=== PATIENT | male | born 1985 | race Caucasian/White ===

== ENCOUNTER 2022-09-12 15:30 | Emergency (ER) | payer OTHER, SELFPAY ==
[2022-09-12 15:35] VITALS: BP 166/92; PULSE 81; RESP 18; TEMP 36.3; O2SAT 96
--- NOTE | 2022-09-12 15:48 | ED_ITS ---
HPI - General Adult General Time Seen by Provider: 17:16 Date Seen: 09/12/22 Chief complaint: Laceration/Wound Stated complaint: Lacs on both index fingers Time Seen by Provider: 09/12/22 15:31 Source: patient Mode of arrival: ambulatory Limitations: no limitations History of Present Illness HPI narrative: Patient is a 36-year-old male presents emergency department for a laceration to his bilateral index fingers. He states prior to arrival he was moving some sheet metal when it cut both fingers. He initially went to urgent care by Clarence kevin the emergency department for better evaluation. He was given a tetanus shot at Urgent Care. Denies any other injuries. Denies any numbness to the fingers. Does note he is having some difficulty fully flexing his left finger with minimal difficulty moving the right finger. No other concerns at this time Related Data Previous Rx's Medication Instructions Recorded cephalexin 500 mg capsule 500 mg PO QID #20 caps 09/12/22 Allergies Allergy/AdvReac Type Severity Reaction Status Date / Time No Known Drug Allergies Allergy Verified 09/12/22 15:01 Review of Systems Narrative: All pertinent review of systems was otherwise unremarkable unless stated in HPI PFSH PFSH Social History Smoking Status: Never smoker How often do you have a drink containing alcohol: 2-4 times a month AUDIT-C Alcohol total score: 2 Non-prescribed substance use: denies use Exam Narrative: Exam Narrative: Const: Well-nourished, Well-developed, in mild distress Eyes: PERRL, no conjunctival injection, and symmetrical lids ENMT: Atraumatic external nose and ears. Moist mucous membranes. MSK:Extremities w/o deformity, Normal Active ROM Skin: Warm, Dry. Laceration to the left index finger in an L-shaped about 1.5 cm x 1.5 cm. Laceration right index finger 1.5 cm. Both are in the midportion of the of palmar aspect of the finger just distal to the PIP. Neuro: Normal Muscle tone, No focal neurological deficits. Psych: Awake, Alert, & Oriented x3. Appropriate mood and affect. Const: Vital Signs, click to edit/add: Vital Signs - 24 hr 09/12/22 15:35 Temperature 97.3 F L Pulse Rate [Right Pulse Oximeter] 81 Respiratory Rate 18 Blood Pressure [Ri ght Upper Arm] 166/92 H Pulse Oximetry 96 Oxygen Delivery Me thod Room Air Course Vital Signs Vital signs: Initial Vital Signs Temperature 97.3 F L 09/12/22 15:35 Temperature Source Temporal Artery Scan 09/12/22 15:35 Pulse Rate 81 09/12/22 15:35 Respiratory Rate 18 09/12/22 15:35 Blood Pressure 166/92 H 09/12/22 15:35 Blood Pressure Mean 116 H 09/12/22 15:35 Blood Pressure Position Sitting 09/12/22 15:35 Pulse Oximetry 96 09/12/22 15:35 Oxygen Delivery Method Room Air 09/12/22 15:35 Vital Signs Temperature 97.3 F L 09/12/22 15:35 Pulse Rate 81 09/12/22 15:35 Respiratory Rate 18 09/12/22 15:35 Blood Pressure 166/92 H 09/12/22 15:35 Pulse Oximetry 96 09/12/22 15:35 Oxygen Delivery Method Room Air 09/12/22 15:35 Temperature 97.3 F L 09/12/22 15:35 Pulse Rate 81 09/12/22 15:35 Respiratory Rate 18 09/12/22 15:35 Blood Pressure 166/92 H 09/12/22 15:35 Pulse Oximetry 96 09/12/22 15:35 Oxygen Delivery Method Room Air 09/12/22 15:35 Medical Decision Making MDM Narrative Medical decision making narrative: Patient is a 36-year-old male presenting for laceration to bilateral index fingers. He was moving some sheet metal when they cut his fingers. He received his tetanus shot by Urgent Care was sent here for better evaluation. I did to lack repair sent both fingers. He is having no difficulty with movement of his right finger but does note some difficulty bending at the D IP to the left finger. The laceration is just distal to the PIP and there is concern for tendon involvement at this time. Does not appear over the deep at this time they did do an ultrasound of the area which as far as I could see showed intact tendon. He did have increased movement after the digital nerve blocks but was still having difficulty mostly on the left DIP. Patient tolerated the laceration repair well. Why still have some concern for deep tendon involvement but everything that I can see shows no signs of it other than the difficulty moving finger. I will state I could not clearly see down to the tendon and did not see any tendinous strands on my evaluation. I informed him to follow up with his primary care provider early next week if he continues to have difficulty with movement of the finger. Considering the mechanism of injury and the clear view is a had I do not believe is necessary to do x-rays to look for foreign bodies at this time. He states he understands. Since both cuts were on the extensor surface I will treat him with antibiotics. Discharge Plan Discharge Clinical Impression: Laceration Patient Disposition: Home, Self-Care Condition: Stable Instructions: Finger Laceration (ED) Additional Instructions: Follow-up with primary care provider in the next couple days if he continues to have difficulty moving your finger. You can also return here to the emergency department if they are unable to get in with your primary care provider. I did prescribe any antibiotics. If you developed severe pain and infection to the finger please return to the emergency department immediately. Prescriptions: New cephalexin 500 mg capsule 500 mg PO QID Qty: 20 0RF Follow Up/Referrals: Fox Whalen MD [Primary Care Provider] - Stand Alone Forms: [facility] Info Instructions Procedures Laceration Left index finger: Name of person performing procedure: Cayden Salter Site: hand (Index finger, L-shaped 1.5 cm x 1.5 cm) Side (If applicable): left Size (cm): 3 Description: linear and clean Depth: simple, single layer Local Anesthetic: lidocaine 1% Amount of anesthesia used (mL): 3 Pre-repair: wound explored, irrigated extensively and deep structures intact Skin layer closed with: nylon Size (cm): 4-0 Number of sutures: 6 Technique: simple, interrupted Right index finger: Name of person performing procedure: Cayden Salter Site: hand (Index finger) Side (If applicable): right Size (cm): 3 Description: linear and clean Depth: simple, single layer Local Anesthetic: lidocaine 1% (Digital nerve block) Amount of anesthesia used (mL): 1.5 Pre-repair: wound explored, irrigated extensively and deep structures intact Skin layer closed with: nylon Size (cm): 4-0 Number of sutures: 5 Technique: simple, interrupted
--- NOTE | 2022-09-12 17:36 | ED.NURSE ---
bilat index fingers sutured. wrapped with bacitracin, telfa, gauze and coban.
== END 2022-09-12 17:38 | disposition home or self-care (01) ==
PROVIDERS: Emergency Provider Student in an Organized Health Care Education/Training Program; PCP Internal Medicine
DX: S61.211A Laceration without foreign body of left index finger without damage to nail, initial encounter (principal); S61.210A Laceration without foreign body of right index finger without damage to nail, initial encounter; W26.9XXA Contact with unspecified sharp object(s), initial encounter
CPT/HCPCS: 12002; 99283

== ENCOUNTER 2022-09-25 10:08 | Outpatient (CLI) | payer OTHER, SELFPAY ==
--- NOTE | 2022-09-25 10:15 | MR_ITS ---
[address] [address] Phone:?[phone] Fax:?[phone] Referring Physician Information: Yary Morgan [address] [facility] [address] Phone:?[phone] Fax:?[phone] Patient:Clemente Grove D.O.B:?1985 Sex:?Male Phone:?[phone] [facility] MRN:?[id number] Exam Date:?09/25/2022 EXAM: MRI of the LEFT HAND, without contrast CLINICAL HISTORY: Acute laceration injury of the left hand second finger. COMPARISONS: Plain radiographs 09/16/2022. TECHNICAL: MRI sequences of the left hand: Axials: PD, PD FS, T2 Coronals: PD, STIR, T2 Sagittals: PD, T2 Sedation: None Contrast: None FINDINGS: Bones: No fracture or suspicious bone marrow signal abnormality is seen although it must be noted that the distal portion of the second proximal phalanx, second middle phalanx, and second distal phalanx are obscured by metallic susceptibility artifact. Joints: No subluxation, dislocation, or joint effusion is seen although it must be noted that evaluation is compromised by metallic susceptibility artifact. Ligaments: The second PIP and DIP collateral ligaments are obscured by metallic susceptibility artifact. The second MCP joint collateral ligaments are intact. Tendons: There is complete disruption of the second finger flexor digitorum profundus tendon with distal tendon retraction to the level of the second metacarpal diaphysis. There is proximal tendon retraction proximal to the [id number] of this study. The second finger flexor tendons are obscured from just proximal to the level of the second PIP joint through the level of the middle phalanx. IMPRESSION: 1. Complete disruption of the second finger flexor digitorum profundus tendon with distal tendon retraction to the level the second metacarpal diaphysis and proximal tendon retraction proximal to the [id number] of this study. MRI of the left wrist is recommended to locate the proximal torn tendon end. 2. It must be noted that the left second finger at the level of the middle phalanx including the flexor tendon complex at this level is obscured by metallic hardware artifact secondary to metallic foreign body within the volar soft tissues. RCB Electronically signed on 09/25/2022 7:58:00 PM by Salazar Hernandez M.D.
== END 2022-09-25 10:09 | disposition home or self-care (01) ==
LOC: MRI 10:09
PROVIDERS: PCP Internal Medicine; Visit Provider Physician Assistant Surgical
DX: M79.642 Pain in left hand (principal); S66.812A Strain of other specified muscles, fascia and tendons at wrist and hand level, left hand, initial encounter; S69.90XA Unspecified injury of unspecified wrist, hand and finger(s), initial encounter
CPT/HCPCS: 73218

== ENCOUNTER 2024-06-07 07:03 | Outpatient (CLI) | payer BC, SELFPAY ==
--- NOTE | 2024-06-07 07:15 | CRLHL7_ITS ---
For Patients: As a result of the Century Cures Act, medical imaging exams and procedure reports are released immediately into your electronic medical record. You may view this report before your referring provider. If you have questions, please contact your health care provider. INDICATION: Right upper quadrant pain COMPARISON: none TECHNIQUE: Real time torres scale imaging and color Doppler analysis was performed of the right upper quadrant. FINDINGS: Liver measures 15.0 cm and has diffusely coarsened/increased echotexture. There is a normal appearance of the hepatic IVC and proximal abdominal aorta. There is no evidence of ascites. The gallbladder is of normal size and there is no evidence of intraluminal stones or sludge. The gallbladder wall measures 1 mm in thickness. The common bile duct is of normal size and measures 5 mm in diameter at the level of the gilles hepatis. The pancreas appears normal. There is no evidence of a stone or hydronephrosis within the right kidney. The right kidney measures 11.1 cm in length. IMPRESSION: Diffuse hepatic steatosis. Remainder unremarkable. Dictated by Kyle Erazo MD @ 06/07/2024 3:13:36 PM (Electronically Signed)
== END 2024-06-07 07:04 | disposition home or self-care (01) ==
LOC: US 07:04
PROVIDERS: PCP Internal Medicine; Visit Provider Internal Medicine
DX: R10.11 Right upper quadrant pain (principal); K76.0 Fatty (change of) liver, not elsewhere classified
CPT/HCPCS: 76705